=== PATIENT | female | born 1945 | race African-American/Black ===

== ENCOUNTER 2018-02-22 01:19 | Emergency (ER) | payer OTHER ==
[~2018-02-22] VITALS: Ht 172.7 cm; Wt 72.0 kg
[~2018-02-22 01:19] MED LIST: ALBU8.5H3 IH; AMLO-512 PO; HYDR12.54 PO; MAGN400T6 PO; MULT1TAB70 PO; OMEP20 PO; VERA180T8 PO
[2018-02-22 01:43] LABS: GLUCOSE,POINT OF CARE 75 MG/DL (70-110)
[2018-02-22 03:19] VITALS: BP 167/92
[2018-02-22 03:39] LABS: GLUCOSE,POINT OF CARE 87 MG/DL (70-110)
== END 2018-02-22 05:00 | disposition short-term general hospital (02) ==
LOC: EMS 01:20
DX: S06.5X9A Traumatic subdural hemorrhage with loss of consciousness of unspecified duration, initial encounter (principal); I11.0 Hypertensive heart disease with heart failure; I50.9 Heart failure, unspecified; J44.9 Chronic obstructive pulmonary disease, unspecified; E11.9 Type 2 diabetes mellitus without complications; F17.210 Nicotine dependence, cigarettes, uncomplicated; W01.0XXA Fall on same level from slipping, tripping and stumbling without subsequent striking against object, initial encounter; Y93.89 Activity, other specified; Y92.091 Bathroom in other non-institutional residence as the place of occurrence of the external cause; Y99.8 Other external cause status
CPT/HCPCS: 70450; 72125; 99285